=== PATIENT | male | born 1940 ===

== ENCOUNTER 2019-06-26 11:00 | Emergency (ER) | payer OTHER ==
[~2019-06-26] VITALS: Ht 167.6 cm; Wt 87.5 kg
== END 2019-06-26 14:51 | disposition home or self-care (01) ==
LOC: ER 11:00
DX: S22.31XA Fracture of one rib, right side, initial encounter for closed fracture (principal); R07.89 Other chest pain; W18.09XA Striking against other object with subsequent fall, initial encounter; Y93.89 Activity, other specified; Y92.098 Other place in other non-institutional residence as the place of occurrence of the external cause; Y99.8 Other external cause status

== ENCOUNTER 2019-11-15 16:48 | Emergency (ER) | payer OTHER ==
[~2019-11-15] VITALS: Ht 167.6 cm; Wt 83.0 kg
== END 2019-11-15 22:51 | disposition home or self-care (01) ==
LOC: ER 16:48
DX: N20.1 Calculus of ureter (principal); N20.0 Calculus of kidney; R10.11 Right upper quadrant pain